=== PATIENT | male | born 1955 | race Caucasian/White ===

== ENCOUNTER 2021-10-07 12:30 | Emergency (ER) | payer MEDICARE ==
[2021-10-07 13:04] LABS: HEMOGLOBIN 14.1 gm/dl (14.0-17.5); RED BLOOD COUNT 4.53 M/UL (4.20-5.50); WHITE BLOOD COUNT 9.1 K/UL (4.5-11.0)
[2021-10-07 13:34] LABS: BUN/CREATININE RATIO 21 (0-10)
== END 2021-10-07 16:25 | disposition home or self-care (01) ==
LOC: ER1 12:30
DX: Z00.00 Encounter for general adult medical examination without abnormal findings (principal); R94.31 Abnormal electrocardiogram [ECG] [EKG]; E78.5 Hyperlipidemia, unspecified; E11.9 Type 2 diabetes mellitus without complications; I10 Essential (primary) hypertension
CPT/HCPCS: 71045; 80053; 82550; 82553; 84484; 85025; 93005; 99285

== ENCOUNTER 2021-10-21 14:51 | Emergency (ER) | payer MEDICARE ==
[2021-10-21 15:54] LABS: HEMOGLOBIN 16.6 gm/dl (14.0-17.5); RED BLOOD COUNT 5.24 M/UL (4.20-5.50); WHITE BLOOD COUNT 17.1 K/UL (4.5-11.0)
[2021-10-21 16:26] LABS: BUN/CREATININE RATIO 25 (0-10)
[2021-10-21 20:43] LABS: HEMOGLOBIN 15.8 gm/dl (14.0-17.5)
== END 2021-10-21 22:07 | disposition short-term general hospital (02) ==
LOC: ER1 14:51
PROVIDERS: Emergency Medicine
DX: K92.2 Gastrointestinal hemorrhage, unspecified (principal); Z20.822 Contact with and (suspected) exposure to COVID-19
CPT/HCPCS: 71045; 80053; 82272; 83605; 83690; 83735; 84484; 85014; 85018; 85025; 85610; 85730; 86850; 86900; 86901; 93005; 96374; 96375; 99285; C9113; J0696; J0780; J2405; U0002

== ENCOUNTER → 2021-12-29 | Outpatient (CLI) | payer MEDICARE | LOC: NM 08:58 | DX: R11.2 Nausea with vomiting, unspecified (principal) | CPT/HCPCS: 78264; A9502 ==

== ENCOUNTER → 2022-01-13 | Outpatient (CLI) | payer MEDICARE ==
[~2022-01-13] MED LIST: CLONIDINE HCL0.1 MG PO; GLIMEPIRIDE1 MG PO; LISINOPRIL20 MG PO; LOVASTATIN10 MG PO; METFORMIN HCL500 M2 PO; METOPROLOL TART25 MG PO; PROTONIX40 MG PO
== END ==
LOC: HEART 5 14:56
DX: I48.0 Paroxysmal atrial fibrillation (principal)